=== PATIENT | female | born 1950 | race Caucasian/White ===

== ENCOUNTER → 2020-03-06 09:34 | Outpatient (BNVA) | payer MEDICARE, SELFPAY | PROVIDERS: PCP Nurse Practitioner Family; Visit Provider Internal Medicine Pulmonary Disease | DX: I27.20 Pulmonary hypertension, unspecified (principal); R06.00 Dyspnea, unspecified | CPT/HCPCS: 99202 ==

== ENCOUNTER 2020-03-08 16:03 | Outpatient (REF) | payer MEDICARE, SELFPAY ==
--- NOTE | 2020-03-08 17:28 | PFT_ITS ---
Forced vital capacity is moderately reduced. FEV1 slightly reduced. [id number] is normal. MVV markedly reduced. After bronchodilator therapy, there is no significant change. Rather, there is slight decrease in [id number]. Total lung capacity is slightly decreased. Residual volume normal. Diffusion capacity is slightly decreased. CONCLUSION: Possible mild restrictive pulmonary disorder. No evidence of any significant obstructive airway disorder. Low forced vital capacity and FEV1 as well as MVV are probably due to very poor effort or deconditioning. Clinical correlation is recommended. MD LUZ Shelton/MODL / [id number]
== END 2020-03-08 16:04 | disposition home or self-care (01) ==
LOC: HO.RESP 16:03
PROVIDERS: Visit Provider Internal Medicine Pulmonary Disease
DX: R06.00 Dyspnea, unspecified (principal); I27.20 Pulmonary hypertension, unspecified
CPT/HCPCS: 94060; 94727; 94729

== ENCOUNTER → 2020-03-26 13:54 | Outpatient (REF) | payer MEDICARE, SELFPAY ==
--- NOTE | 2020-03-26 14:07 | NM_ITS ---
EXAMINATION: PULMONARY PERFUSION STUDY CLINICAL INFORMATION: Pulmonary hypertension. COMPARISON: No previous lung scan is available for comparison. Radiographs of the chest dated 03/26/2020, the same date as this lung scan, are available for comparison. TECHNIQUE: Following the intravenous injection of 1.0 mCi Tc-99m MAA, an 8-view perfusion study was performed using a gamma scintillation camera. FINDINGS: No segmental perfusion defects are present. There is homogeneous distribution of activity bilaterally. There are no focal anatomic appearing perfusion defects present. NM/NM pul perfusion IMPRESSION: Normal radionuclide lung perfusion scan.
--- NOTE | 2020-03-26 14:29 | XR_ITS ---
EXAMINATION: XR CHEST CLINICAL INFORMATION: R06.00 - Dyspnea, unspecified COMPARISON: None TECHNIQUE: 2 views of the chest were obtained. FINDINGS: There is been prior coronary bypass surgery with mediastinal clips and sternotomy wires. Heart is borderline enlarged. The vascularity is normal. There is no lobar or segmental airspace consolidation or groundglass opacity or effusion. No hyperinflation. The hilar and mediastinal contours are normal. There are mild multilevel degenerative changes thoracic spine. XR/XR chest 2V IMPRESSION: Status post prior median sternotomy. No vascular congestion, infiltrate, or effusion.
== END ==
LOC: HO.NUCMED 13:54
PROVIDERS: Visit Provider Internal Medicine Pulmonary Disease
DX: I27.20 Pulmonary hypertension, unspecified (principal); R06.00 Dyspnea, unspecified
CPT/HCPCS: 71046; 78580; A9540

== ENCOUNTER → 2020-04-09 15:31 | Outpatient (BNVA) | payer MEDICARE, SELFPAY | PROVIDERS: PCP Registered Nurse; Visit Provider Internal Medicine Pulmonary Disease | DX: I27.20 Pulmonary hypertension, unspecified (principal); R06.00 Dyspnea, unspecified | CPT/HCPCS: 99212 ==

== ENCOUNTER → 2020-07-04 13:22 | Outpatient (BNVA) | payer MEDICARE, SELFPAY | PROVIDERS: PCP Nurse Practitioner Family; Visit Provider Internal Medicine Pulmonary Disease | DX: R06.00 Dyspnea, unspecified (principal); I27.20 Pulmonary hypertension, unspecified | CPT/HCPCS: 99212 ==

== ENCOUNTER → 2020-11-06 12:59 | Outpatient (BNVA) | payer MEDICARE, SELFPAY | PROVIDERS: PCP Nurse Practitioner Family; Visit Provider Internal Medicine Pulmonary Disease | DX: I27.20 Pulmonary hypertension, unspecified (principal); R06.00 Dyspnea, unspecified | CPT/HCPCS: 99212 ==